=== PATIENT | female | born 1960 | race American Indian/Alaskan Native ===

== ENCOUNTER 2019-07-10 11:34 | Outpatient (CLI) | payer MEDICARE ==
[2019-07-10 12:31] LABS: Hematocrit 40.1 % (30.3-42.9); Hemoglobin 12.5 gm/dl (10.1-14.3); Mean Corpuscular HGB Conc 31 % (30-34); Mean Corpuscular Volume 98 fl (79-97); Platelet Count 327 K/mm3 (140-440); Red Blood Count 4.07 M/mm3 (3.65-5.03); Red Cell Distribution Width 18.4 % (13.2-15.2)
[2019-07-10 13:03] LABS: Albumin 3.7 g/dL (3.9-5); BUN/Creatinine Ratio 17; Blood Urea Nitrogen 15 mg/dL (7-17); Calcium 9.6 mg/dL (8.4-10.2); Hemolysis Index 9
[2019-07-10 13:09] LABS: Free T4 (Free Thyroxine) 1.42 ng/dL (0.76-1.46)
[2019-07-14 11:23] LABS: Vitamin D, 25-OH, D2 <4 ng/mL
== END 2019-07-10 11:35 | disposition home or self-care (01) ==
LOC: LAB 11:34
PROVIDERS: ATTEND Internal Medicine
DX: N20.0 Calculus of kidney (principal); I12.9 Hypertensive chronic kidney disease with stage 1 through stage 4 chronic kidney disease, or unspecified chronic kidney disease; E11.22 Type 2 diabetes mellitus with diabetic chronic kidney disease; N18.2 Chronic kidney disease, stage 2 (mild); R60.9 Edema, unspecified; M05.89 Other rheumatoid arthritis with rheumatoid factor of multiple sites; E66.01 Morbid (severe) obesity due to excess calories; R82.81 Pyuria
CPT/HCPCS: 36415; 80048; 82040; 82306; 84100; 84439; 84443; 84550; 85027